=== PATIENT | female | born 1955 | race Two or more races ===

== ENCOUNTER 2022-09-02 06:01 | Emergency (ER) | payer BC ==
[~2022-09-02] VITALS: Ht 157.5 cm; Wt 90.7 kg
[2022-09-02] MEDS ORDERED: COZAAR25 MG PO (06:21)
[2022-09-02] MEDS ORDERED: TEGRETOL XR400 MG PO (06:23)
[2022-09-02] MEDS ORDERED: ADULT LOW DOSE81 M1 PO (06:23)
[2022-09-02] MEDS ORDERED: TOPROL XL25 M1 PO (06:24)
[2022-09-02] MEDS ORDERED: ZIPRASIDONE HCL80 MG PO (06:24)
[2022-09-02] MEDS ORDERED: BRILINTA60 MG PO (06:25)
[2022-09-02] MEDS ORDERED: REPATHA SU140 MG/1 M SUBCUTANEO (06:25)
[2022-09-02] MEDS ORDERED: CRESTOR20 MG PO (06:27)
== END 2022-09-02 13:11 | disposition home or self-care (01) ==
LOC: ER 06:01
DX: K57.90 Diverticulosis of intestine, part unspecified, without perforation or abscess without bleeding (principal); Z88.0 Allergy status to penicillin; Z91.041 Radiographic dye allergy status; Z91.013 Allergy to seafood; Z91.018 Allergy to other foods